=== PATIENT | male | born 1980 | race African-American/Black ===

== ENCOUNTER 2017-05-03 11:43 | Outpatient (CLI) ==
[2016-04-10 16:24] VITALS: BMI 27.3
[2017-05-03 12:30] LABS: BASOPHILS % (AUTO) 0.9 % (0.0-3.0); EOSINOPHILS # (AUTO) 0.1 K/ul (0.0-0.7); EOSINOPHILS % (AUTO) 2.7 % (0.0-7.0); HEMATOCRIT 41.8 % (42.0-52.0); HEMOGLOBIN 14.6 g/dl (14.0-18.0); IMMATURE GRANULOCYTE % (AUTO) 0.2 % (0.0-5.0); LYMPHOCYTES # (AUTO) 2.4 K/uL (0.60-3.4); MEAN CORPUSCULAR HEMOGLOBIN 29.9 pg (27.0-31.0); MEAN CORPUSCULAR HGB CONC 34.9 (31.8-35.4); MEAN CORPUSCULAR VOLUME 85.5 fl (80.0-94.0); MONOCYTES # (AUTO) 0.2 K/uL (0.4-2.0); MONOCYTES % (AUTO) 5.4 (0-10); NEUTROPHILS # (AUTO) 1.7 K/ul (2.0-6.9); NEUTROPHILS % (AUTO) 36.8; PLATELET COUNT 253 10^3/uL (140-440); RED BLOOD COUNT 4.89 10^6/ul (4.70-6.10); WHITE BLOOD COUNT 4.48 K/ul (4.2-10.2)
[2017-05-03 12:50] LABS: ALBUMIN 3.8 g/dL (3.4-5.0); ALBUMIN/GLOBULIN RATIO 1.06; ANION GAP 14.6; BILIRUBIN,TOTAL 0.25 mg/dL (0.00-1.20); BUN/CREATININE RATIO 8.16; CALCIUM 9.1 mg/dL (8.2-10.2); CREATININE 0.98 mg/dL (0.60-1.10); POTASSIUM 4.6 mmol/L (3.5-5.1); TOTAL PROTEIN 7.4 g/dL (6.4-8.2)
[2017-05-03 16:24] LABS: BILIRUBIN,URINE Negative (NEGATIVE); KETONES,URINE Negative (NEGATIVE); LEUKOCYTE ESTERASE ,URINE Negative (NEGATIVE); NITRITE,URINE Negative (NEGATIVE); PH,URINE 6.5 (5-9); PROTEIN,URINE Negative (NEGATIVE); URINE, BLOOD Negative (NEGATIVE)
[2017-05-03 16:25] LABS: ADD URINE MICROSCOPIC NO
== END 2017-05-03 11:44 | disposition home or self-care (01) ==
LOC: LAB 11:43
PROVIDERS: ATTEND Nurse Practitioner Family
DX: R42 Dizziness and giddiness (principal)
CPT/HCPCS: 36415; 80053; 81001; 85025

== ENCOUNTER 2017-06-12 16:44 | Emergency (ER) ==
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
[2017-06-12 16:54] VITALS: BP 108/80; TEMP 98.5; BMI 28.0
--- NOTE | 2017-06-12 17:26 | DI ---
Exam: Two views right femur. Clinical indication: Fall with right leg pain with prior history of open reduction internal fixatio n. Findings / impression: There are two cannulated lag screws fixating an old healed proximal right femoral fracture. There i s mild residual varus deformity of the femoral neck. There are no acute fractures, dislocations or other significant abnormality.
--- NOTE | 2017-06-12 17:31 | DI ---
EXAM: Two views of the right hip. HISTORY: Fall with right hip pain. FINDINGS: There are two surgical pins in the right femoral head and neck which appear intact and in adequate position. The bones are intact with no evidence of acute fracture. The right hip joint sp thelma is maintained. No soft tissue abnormality. Impression: No evidence of acute fracture. Operative changes as described.
[2017-06-12] MEDS ORDERED: TORADOL IM STA (17:51)
[2017-06-12] MEDS ORDERED: ZOFRAN ODT PO STA (18:14)
== END 2017-06-12 18:34 | disposition home or self-care (01) ==
LOC: ED 16:44
DX: M25.551 Pain in right hip (principal); W19.XXXA Unspecified fall, initial encounter; F17.210 Nicotine dependence, cigarettes, uncomplicated
CPT/HCPCS: 96372; 99283

== ENCOUNTER 2017-10-13 17:24 | Emergency (ER) ==
[2017-10-13 17:30] VITALS: BP 131/92; TEMP 100.3; BMI 28.1
[2017-10-13] MEDS ORDERED: TORADOL IM STA (17:40)
[2017-10-13] MEDS ORDERED: DECADRON 4 MG/ML SDV IM STA (17:40)
--- NOTE | 2017-10-13 17:43 | ED.PDOC ---
General ED Provider: Dr. ALEXIA CRUZ-ER Chief Complaint: Non-specific Complaint Stated Complaint: my sinuses are clogged and my nose is draining green stuff and im coughing up green stuff--i pulled on something at work and my back hurts when i move around--denies any sob or hemoptysis Time Seen by Physician: 17:25 Mode of Arrival: Walk-In Information Source: Patient Exam Limitations: No limitations Nursing and Triage Documentation Reviewed and Agree: Yes Reviewed sepsis parameters & appropriate labs ordered?: Yes System Inflammatory Response Syndrome: Not Applicable Sepsis Protocol: For patient's 13 years and over: Temp is 96.8 and below OR 101 and greater Pulse >90 BPM Resp >20/minute Acutely Altered Mental Status Are patient's symptoms suggestive of a new infection, such as: -Pneumonia -Skin, Soft Tissue -Endocarditis -UTI -Bone, Joint Infection -Implantable Device -Acute Abdominal Infection -Wound Infection -Meningitis -Blood Stream Catheter Infection -Unknown EENT Complaint Exam - Nasal Complaint/Exam Onset/Duration: several days Symptoms Are: Still present Initial Severity: Mild Current Severity: Mild Aggravating: Reports: URI Alleviating: Reports: Pressure Associated Signs and Symptoms: Reports: Nasal congestion, Sinus pain, Nasal discharge. Denies: Bruising, Hematuria, Hematochezia, Foreign body, Abnormal coags Related History: Reports: Similar episode Nasal Surgical History: Reports: None Foreign Body Present: No Septal Hematoma: No Differential Diagnoses: Sinusitis Review of Systems - Review Of Systems Constitutional: Reports: No symptoms Eyes: Reports: No symptoms Ears, Nose, Mouth, Throat: Reports: Nose discharge, Throat pain Respiratory: Reports: Cough Cardiac: Reports: No symptoms GI: Reports: No symptoms : Reports: No symptoms Musculoskeletal: Reports: Back pain (only with movement) Skin: Reports: No symptoms Neurological: Reports: No symptoms Endocrine: Reports: No symptoms Hematologic/Lymphatic: Reports: No symptoms All Other Systems: Reviewed and Negative Past Medical History - Past Medical History Previously Healthy: Yes Endocrine: Reports: None Cardiovascular: Reports: None Respiratory: Reports: None Hematological: Reports: None Gastrointestinal: Reports: None Genitourinary: Reports: None Neuro/Psych: Reports: None Musculoskeletal: Reports: None Cancer: Reports: None Other Pertinent Past Medical History: abscess left axilla - Surgical History General Surgical History: Reports: Orthopedic (pins rt leg) - Family History Family History: Reports: None - Social History Smoking Status: Current every day smoker Hx Substance Use: (marijuana) Alcohol Screening: None Lives: With family - Immunizations Tetanus Shot up to Date: Yes Physical Exam - Physical Exam Appearance: Well-appearing, No pain distress, Well-nourished Eyes: BRY, EOMI, Conjunctiva clear ENT: Rhinorrhea Neck: Supple Respiratory: Airway patent, Breath sounds clear, Breath sounds equal, Respirations nonlabored Cardiovascular: RRR, Pulses normal, No rub, No murmur GI/: Soft, Nontender, No masses, Bowel sounds normal, No Organomegaly Musculoskeletal: Normal strength, ROM intact, No edema, No calf tenderness Skin: Warm Neurological: Sensation intact, Motor intact, Reflexes intact, Cranial nerves intact, Alert, Oriented Psychiatric: Affect appropriate, Mood appropriate Critical Care Note - Critical Care Note Total Time (mins): 0 Course - Course Orders, Labs, Meds: Orders Category Date Time Status Dexamethasone 4 mg/ml Inj [Decadron 4 mg/ml Sdv] MEDS 10/13/17 17:40 Discontinued 4 mg IM ONCE STA Ketorolac Tromethamine [Toradol] MEDS 10/13/17 17:40 Discontinued 60 mg IM ONCE STA Medications Discontinued Medications Generic Name Dose Route Start Last Admin Trade Name Freq PRN Reason Stop Dose Admin Dexamethasone Sodium Phosphate 4 mg 10/13/17 17:40 Decadron 4 Mg/Ml Sdv IM 10/13/17 17:41 ONCE STA Ketorolac Tromethamine 60 mg 10/13/17 17:40 Toradol IM 10/13/17 17:41 ONCE STA Vital Signs: Temp Pulse Resp BP Pulse Ox 10/13/17 17:24 100.3 F H 104 H 20 131/92 H 97 Departure - Departure Time of Disposition: 17:44 Disposition: HOME SELF-CARE Discharge Problem: Sinusitis Qualifiers: Sinusitis location: other Chronicity: acute Recurrence: non-recurrent Qualified Code(s): J01.80 - Other acute sinusitis Instructions: Sinusitis (ED) Condition: Good Pt referred to PMD for follow-up: Yes Additional Instructions: biaxin 500mg bid x 10 days--medrol dose pack--recheck in 72hrs if not better Allergies/Adverse Reactions: Allergies Penicillins Allergy (Verified 10/13/17 17:33) venom-honey bee [bee venom (honey bee)] Allergy (Verified 10/13/17 17:33) Home Medications: Ambulatory Orders 1 [No Reported Medications] 10/13/17 Disposition Discussed With: Patient, Family
== END 2017-10-13 18:09 | disposition home or self-care (01) ==
LOC: ED 17:24
DX: J01.80 Other acute sinusitis (principal); M54.9 Dorsalgia, unspecified; F17.210 Nicotine dependence, cigarettes, uncomplicated; X50.0XXA Overexertion from strenuous movement or load, initial encounter
CPT/HCPCS: 96372; 99282

== ENCOUNTER 2018-10-19 16:35 | Emergency (ER) ==
[2018-10-19 16:35] VITALS: BMI 28.1
[2018-10-19 16:37] VITALS: BP 144/94; TEMP 97.9
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
--- NOTE | 2018-10-20 07:34 | DI ---
Exam: Three views of the right hand. Comparison: None available. Reason for exam: Blunt trauma. FINDINGS: No acute fracture or malalignment. The joint spaces are well maintained. No unexplained calcific soft tissue density or radiopaque retained foreign body. Impression: No acute fracture or malalignment in the right hand
== END 2018-10-19 18:51 ==
LOC: ED 16:35
DX: S60.221A Contusion of right hand, initial encounter (principal); W22.8XXA Striking against or struck by other objects, initial encounter
CPT/HCPCS: 99283